=== PATIENT | female | born 1955 ===

== ENCOUNTER 2017-11-12 02:23 | Outpatient (CLI) | payer OTHER | END 2017-11-12 23:59 | disposition home or self-care (01) | LOC: DIABETIC 02:23 | PROVIDERS: ATTEND Specialist | DX: E11.65 Type 2 diabetes mellitus with hyperglycemia (principal); Z79.82 Long term (current) use of aspirin; Z79.84 Long term (current) use of oral hypoglycemic drugs; Z79.4 Long term (current) use of insulin | CPT/HCPCS: G0108 ==